=== PATIENT | female | born 1970 | race Asian ===

== ENCOUNTER 2017-05-23 23:26 | Emergency (ER) | payer MEDICAID ==
[~2017-05-23] VITALS: Ht 167.6 cm; Wt 109.3 kg
[2017-05-23 23:34] VITALS: Ht 167.6 cm; Wt 109.3 kg
[2017-05-24 02:04] VITALS: BP 131/71
== END 2017-05-24 02:04 | disposition home or self-care (01) ==
LOC: ED 23:26
DX: J45.901 Unspecified asthma with (acute) exacerbation (principal)
CPT/HCPCS: J7613; J7644

== ENCOUNTER 2018-06-24 20:49 | Emergency (ER) | payer MEDICAID ==
[~2018-06-24] VITALS: Ht 167.6 cm; Wt 112.5 kg
[2018-06-24 21:24] VITALS: Ht 167.6 cm; Wt 112.5 kg
[2018-06-24 22:48] VITALS: BP 127/91
== END 2018-06-24 22:48 | disposition home or self-care (01) ==
LOC: ED 20:49
DX: J40 Bronchitis, not specified as acute or chronic (principal); M94.0 Chondrocostal junction syndrome [Tietze]; N39.0 Urinary tract infection, site not specified; H65.00 Acute serous otitis media, unspecified ear; Z98.890 Other specified postprocedural states; Z90.710 Acquired absence of both cervix and uterus
CPT/HCPCS: 82962; J1100; J1885

== ENCOUNTER 2018-07-02 16:42 | Emergency (ER) | payer MEDICAID ==
[~2018-07-02] VITALS: Ht 167.6 cm; Wt 112.0 kg
[2018-07-02 16:58] VITALS: Ht 167.6 cm; Wt 112.0 kg
[2018-07-02 18:03] LABS: BASOPHIL % 0.5 % (0-2); PLATELET COUNT 357 x10^3mcL (130-400); RED CELL DISTRIBUTION WIDTH 14.2 % (11.5-14.5)
[2018-07-02 18:07] LABS: UA SPECIFIC GRAVITY >=1.030 (1.005-1.035); microscopic required? YES; urine erythrocyte NEGATIVE (NEGATIVE)
[2018-07-02 18:11] LABS: CALCIUM 8.7 mg/dL (8.5-10.1); CARBON DIOXIDE 26.1 mmol/L (21-32); CHLORIDE SERUM 105 mmol/L (98-107); CREATININE SERUM 0.6 mg/dL (0.6-1.0); GFR1 > 60 mL/min; GLUCOSE SERUM 101 mg/dL (74-106); POTASSIUM SERUM 4.3 mmol/L (3.5-5.1); SODIUM SERUM 142 mmol/L (136-145)
[2018-07-02 18:19] LABS: ALBUMIN 3.5 g/dL (3.4-5.0); ALKALINE PHOSPHATASE 79 U/L (46-116); ALT/SGPT 42 U/L (14-59); AST/SGOT 28 U/L (15-37); BILIRUBIN TOTAL 0.48 mg/dL (0.20-1.00); TOTAL PROTEIN, SERUM 7.8 g/dL (6.4-8.2)
[2018-07-02 19:57] VITALS: BP 141/85
== END 2018-07-02 19:57 | disposition home or self-care (01) ==
LOC: ED 16:42
PROVIDERS: Emergency Medicine
DX: N39.0 Urinary tract infection, site not specified (principal); N23 Unspecified renal colic; Z90.710 Acquired absence of both cervix and uterus
CPT/HCPCS: 36415; J1885